=== PATIENT | female | born 1945 | race Caucasian/White ===

== ENCOUNTER 2018-06-23 10:08 | Inpatient (IN) | payer MEDICARE, BC ==
[~2018-06-23] VITALS: Ht 167.6 cm; Wt 90.3 kg
[~2018-06-23 10:08] MED LIST: ASPIRIN81 M2; BENICAR40 MG; CLARITIN10 MG; FOLIC ACID1 MG; HYDROCODON-ACE1 EACH PO; LOTREL 10-20 M1 EACH PO; SIMVASTATIN20 MG; SULFASALAZINE500 M4; ZOFRAN ODT4 MG PO
[2018-06-23 10:15] VITALS: BP 155/75
[2018-06-23] MEDS ORDERED: CO Q-10100 MG PO (10:37)
[2018-06-23] MEDS ORDERED: VISION FORMULA1 EAC1 PO (10:38)
[2018-06-23] MEDS ORDERED: STOOL SOFTENER100 MG PO (10:42)
[2018-06-23] MEDS ORDERED: [UNRECOGNIZED DRUG - REMARK] (10:43)
[2018-06-23 10:52] LABS: ABSOLUTE BASOPHILS 0.1 thou/uL (0.0-0.2); ABSOLUTE EOSINOPHILS 0.3 thou/uL (0.0-0.7); ABSOLUTE LYMPHOCYTES 1.1 thou/uL (0.8-5.3); ABSOLUTE MONOCYTES 1.2 thou/uL (0.0-1.2); BASOPHILS 0.8 %; EOSINOPHILS 3.6 %; HEMATOCRIT 35.2 % (37.0-47.0); HEMOGLOBIN 11.8 gm/dL (12.0-15.0); LYMPHOCYTES 11.1 %; MCHC 33.5 g/dL (28.0-37.0); MCV 83.7 fL (80.0-100.0); MONOCYTES 12.4 %; MPV 9.6 fl. (7.2-11.1); NUCLEATED RBCS 0 /100WBC; PLATELET COUNT* 278 thou/uL (150-400); POLYS 72.1 %; RBC 4.21 mil/uL (4.20-5.00); RDW-CV 13.5 % (10.5-14.5); WBC 9.7 thou/uL (4.0-11.0)
[2018-06-23 11:07] LABS: CALCIUM 9.2 mg/dL (8.5-10.1); CREATININE 0.8 mg/dL (0.6-1.3); POTASSIUM 4.4 mmol/L (3.5-5.1)
[2018-06-23 11:09] LABS: NT-PRO BRAIN NAT PEPTIDE 157 pg/mL (<300); TROPONIN-I LEVEL <0.06 ng/mL (<0.06)
[2018-06-23 11:11] LABS: TOTAL BILIRUBIN 0.3 mg/dL (<0.1-1.0); TOTAL PROTEIN 6.9 g/dL (6.4-8.2)
[2018-06-23 11:59] LABS: URINE BILIRUBIN NEGATIVE (Negative); URINE BLOOD NEGATIVE (Negative); URINE CLARITY CLEAR; URINE COLOR DARK YELLOW; URINE GLUCOSE-RANDOM NEGATIVE (Negative); URINE KETONES TRACE (Negative); URINE LEUKOCYTES-REFLEX TRACE (Negative); URINE NITRITE-REFLEX NEGATIVE (Negative); URINE PROTEIN TRACE (Negative); URINE SPECIFIC GRAVITY 1.015 (1.005-1.030); URINE UROBILINOGEN 0.2 E.U./dl (0.2-1.0)
[2018-06-23 12:25] LABS: SQUAMOUS 4-10 Moderate /LPF (0-3); URINE RBC None Seen /HPF (0-2); URINE WBC-REFLEX 0-5 Rare /HPF (0-5)
[2018-06-23 12:26] LABS: BACTERIA-REFLEX 1-9 Few /HPF (None Seen); CASTS None Seen /LPF (None Seen); CRYSTALS None Seen /LPF (None Seen)
[2018-06-23 15:41] VITALS: BP 151/70
[2018-06-23 16:07] VITALS: BP 148/71
--- NOTE | 2018-06-23 16:18 | NUR ---
DURING ASSESMENT ROUNDED AND STATED PATIENT WOULD NEED TO BE IN NEGATIVE PRESSURE ROOM FOR POSSIBLE MYCOBACTERIUM PNEUMONIA. LAST SCOURER NOTIFIED.
[2018-06-23 16:51] VITALS: BP 139/66
[2018-06-23] MEDS ORDERED: XARELTO15 MG PO (18:26)
[2018-06-23] MEDS ORDERED: NORCO 5-325 TA1 EACH PO (18:28)
[2018-06-23 20:00] VITALS: BP 142/79
[2018-06-24] VITALS (7 sets, daily range): BP systolic 116–139; BP diastolic 44–68
--- NOTE | 2018-06-24 06:13 | NUR ---
PATIENT PROGRESSING TOWARDS GOALS. NO ACUTE HEMODYNAMIC CHANGES OVER NIGHT. TB SKIN TEST ADM LAST NIGHT. WILL CONTINUE TO MONITOR CLOSELY. PT COMPLAINED OF LEFT KNEE PAIN, REPOSITIONED AND PAIN MEDICATION GIVEN SEEMED TO HELP. PT ABLE TO VOID PER COMMOD WITH NO COMPLICATIONS. SHE REFUSED INSLUIN LAST NIGHT STATED "I AM NOT DIABETIC I JUST ATE SOME JELLO MAYBE THAT'S WHY IT IS HIGH, WE CAN WAIT AND SEE WHAT IT IS IN THE MORNING". EDUCATION GIVEN NEEDS REINFORCEMENT. PT TOLERATED CPAP WELL 02 >92. PT HAS NO CURRENT CONCERNS AT THIS TIME WILL CONTINUE TO MONITOR. PT REMAINS IN NEGITIVE PRESSURE ROOM. CALL LIGHT WITHIN REACH.
[2018-06-24 09:00] LABS: HEMATOCRIT 38.1 % (37.0-47.0); HEMOGLOBIN 12.6 gm/dL (12.0-15.0); MCH 27.5 pg (26.0-34.0); MCV 83.6 fL (80.0-100.0); MPV 10.1 fl. (7.2-11.1); RBC 4.56 mil/uL (4.20-5.00); RDW-CV 13.6 % (10.5-14.5); WBC 9.7 thou/uL (4.0-11.0)
[2018-06-24 09:08] LABS: HIV-1/HIV-2 ANTIBODY Non Reactive (Non Reactive)
[2018-06-24 09:25] LABS: ALBUMIN 3.3 g/dL (3.4-5.0); CALCIUM 9.8 mg/dL (8.5-10.1); CREATININE 0.9 mg/dL (0.6-1.3); MAGNESIUM 2.1 mg/dL (1.8-2.4); POTASSIUM 4.1 mmol/L (3.5-5.1); TOTAL BILIRUBIN 0.4 mg/dL (<0.1-1.0); TOTAL PROTEIN 8.2 g/dL (6.4-8.2)
--- NOTE | 2018-06-24 11:00 | NUR ---
PT ADMITTED YESTERDAY WITH ATYPICAL PNEUMONIA. SPOKE WITH PT AND . PT HAD TOTAL KNEE REPLACEMENT BY DR. LOMELI AT [facility] IN APR[place], SHE SAID SHE WAS PROGRESSING WELL UNTIL RECENTLY WHEN SHE DEVELOPED SEVERE PAIN IN HER LEG. SHE HAD GOTTEN TO THE POINT WHERE SHE DIDN'T NEED HER CANE OR WALKER ANY LONGER AND WAS GOING TO OUTPATIENT THERAPY AT [facility] IN [facility]. SHE RECENTLY HAS STARTED TO NEED HER WALKER TO GET TO THE BATHROOM DURING THE NIGHT, DUE TO THE PAIN. PT SAW A 'VEIN DOCTOR I DIDN'T EVEN KNOW SUCH A THING EXISTED' RECENTLY WHO DIAGNOSED HER WITH SUPERFICIAL VEIN THROMBOSIS, SHE WAS STARTED ON XARLETO ON 06/15 FOR THAT. PT NORMALLY WAS ACTIVE AND INDEP, HER IS AVAILABLE TO ASSIST IF NEEDED. PT ANXIOUS TO START P.T. HERE IN THE HOSPITAL, 'I DON'T WANT TO LOSE WHAT I HAVE WORKED SO HARD TO GET.' EXPLAINED ROLE OF CASE MGT, WILL CONTINUE TO FOLLOW. PT PLANS TO RETURN HOME WWITH HER AND CONTINUE OUTPT P.T.
--- NOTE | 2018-06-24 12:33 | CON ---
[address] [address] CONSULTATION Name: AMOL CINTRON Room: [address] IN .R.#: [id number] Admission: 06/23/18 Attend Phys: Joyce Vela MD Discharge: Date of : 43 Report #: [id number] THIS REPORT FOR: //name// CC: Joyce Ruth DATE OF SERVICE: 06/23/2018 ATTENDING PHYSICIAN: Dr. Vela. REASON FOR EVALUATION: Pneumonitis, possible atypical. HISTORY OF PRESENT ILLNESS: Chart reviewed, patient examined. This is a 72-year-old woman with history of colon cancer although in the distant past, hypertension, obstructive sleep apnea, who actually has not been feeling well for the last 5-6 days, described a brief period of fevers that has resolved, has a nonproductive cough, dyspnea, progressive weakness. She notes total knee replacement on the right in early part of April that has been complicated by, she has got a superficial vein thrombosis. She notes the knee had increasing pain that prompted the evaluation. Denies significant pulmonary-related complaints. She had some minor weight loss during that last 7 weeks revolving around the total knee arthroplasty. On evaluation was fairly unremarkable chest x-ray, however, CT to exclude PE, showed scattered tiny peripheral pulmonary nodules. There is question of possible atypical pneumonitis including Mycobacterium and fungal. Urinalysis was otherwise unremarkable. White count was 9.7. She was mildly anemic at 11.8, lower limits of normal being 12.0. She has not had recorded temperature elevation. She was empirically started on ceftriaxone and azithromycin. ALLERGIES: SULFASALAZINE. MEDICATIONS: Include ipratropium, albuterol inhaler, ceftriaxone and azithromycin. PAST MEDICAL HISTORY: As described above, hyperlipidemia, hypertension. SOCIAL HISTORY: Nonsmoker, no ethanol. FAMILY HISTORY: Noncontributory. REVIEW OF SYSTEMS: As above. PHYSICAL EXAMINATION: GENERAL: She is in [id number] distress. She does have occasional cough, it is nonproductive. She appears reasonably well nourished. VITAL SIGNS: Temperature 98.8, pulse 75, respirations 18, [place] [address] CONSULTATION Name: AMOL CINTRON Sulma Room: [address]#: [id number] Admission: 06/23/18 Attend Phys: Joyce Vela MD Discharge: Date of : 43 Report #: [id number] 139/66. SKIN: Warm, dry, no rashes. HEENT: Otherwise unremarkable. NECK: Supple. LUNGS: Generally clear to auscultation. HEART: Regular. No appreciable murmur. ABDOMEN: Soft, nontender. EXTREMITIES: No cyanosis. GENITOURINARY: Deferred. RECTAL: Deferred. LABORATORY DATA: As described above. Lactic acid is 0.6. CTA chest PE protocol notes small peripherally-enhancing nodules in a tree-in-bud pattern in the inferolateral aspect of the right upper lobe, appearance of an atypical infection. Urinalysis: 0-5 white cells. Electrolytes: Sodium 137, potassium 4.4, chloride 101, bicarbonate is 27, anion gap of 9, BUN and creatinine 15 and 0.8, glucose of 176. LFTs unremarkable. Albumin of 3.0, total protein 6.9, estimated GFR of 70. D-dimer of 2.23. CBC: White count of 9.7, H and H 11.8 and 35.2, platelets of 278. ASSESSMENT: Atypical pneumonitis. I think certainly the timeline suggest more of an acute illness as opposed to some sort of underlying chronic pneumonitis. We will continue with azithromycin. I am not particularly hopeful that she would be able to cough up any sputum. She has been placed in respiratory isolation. We will check urinary antigens, etc. We may have to try to induce a sputum. See how she does clinically over the next 24-48 hours. <ELECTRONICALLY SIGNED> By: Harsh Carl MD 06/24/18 1233 1741 [id number] Carl MD /nt
--- NOTE | 2018-06-24 13:56 | NUR ---
PT TELE STATUS. ON ISOLATION PRECAUTIONS FOR TB. MEDS GIVEN. ASSESSMENT CHARTED. AFEBRILE. VITALS STABLE. REPORT GIVEN TO GABBI REDDY. ALL QUESTIONS ANSWERED. PT TRANSFERRED TO RM. 200. TRANSFERRED WITH BELONGINGS AND ISOLATION CART AROUND 1300.
--- NOTE | 2018-06-24 16:21 | EKG ---
[place] [address] ELECTROCARDIOGRAM REPORT Name: AMOL CINTRON Room: [address] IN .R.#: [id number] Admission: 06/23/18 Attend Phys: Joyce Vela MD Discharge: Date of : 43 Report #: [id number] THIS REPORT FOR: //name// [facility] ED Test Date: 2018-06-23 Test Time: 10:22:27 Pat Name: AMOL CINTRON Department: Room: [facility] Gender: F Ward Maid: : 1945 Requested By: Joan Mcdonald Order Number: [id number] MD: Hugo Willis Measurements Intervals [place] Rate: 93 P: 19 [place]: 170 QRS: 61 QRSD: 86 T: 46 QT: 322 QTc: 401 Interpretive Statements Sinus rhythm Compared to ECG 03/27/2013 08:33:15 No significant changes Electronically Signed On 06-24-2018 16:21:04 CDT by Hugo Willis [email or web address] <ELECTRONICALLY SIGNED> By: Hugo Willis MD, [facility] 06/24/18 1621 1022 1022 Hugo Willis MD, [facility] /EPI
--- NOTE | 2018-06-24 17:55 | NUR ---
PT TRANSFERED FROM ICU TO ROOM 200 AT APPROX 1310. PT A/O X4, ASSESMENT DONE, THIS RN AGREES WITH THE AM ASSESMENT. PT ON 2L 02, LUNGS DIMINISHED, TEMP 99.8, ALL OTHER VSS. TYLENOL GIVEN FOR TEMP.DROPLET PRECAUTIONS MAINTAINED. PT SR ON THE MONITOR. USES WALKER TO AMBULATE, CALLS APPROPRIALTY FOR ASSISTANCE. WILL CONTINUE WITH PLAN OF CARE.
[2018-06-25 00:16] VITALS: BP 127/57
--- NOTE | 2018-06-25 01:44 | NUR ---
ASSUMED CARE OF PT AT 1900. PT IS ALERT AND ORIENTED. VSS. PERRLA. NO COMPLAINTS OF PAIN. UP WITH 1 ASSIST. PT IS IN SINUS RYTHM ON THE TELEMETRY. PT IS IN AIRBORN PRECAUTIONS FOR POSSIBLE TUBERCULOSIS. PT IS SLEEPING QUIETLY IN BED. RESPIRATIONS ARE EVEN AND NONLABORED. WILL CONTINUE TO MONITOR PT.
[2018-06-25 02:11] LABS: GLYCOHEMOGLOBIN (HGB A1C) 5.5 % (4.8-5.6)
[2018-06-25 05:00] VITALS: BP 130/75
[2018-06-25 08:30] VITALS: BP 137/72
--- NOTE | 2018-06-25 09:21 | CON ---
[address] [address] CONSULTATION Name: AMOL CINTRON Room: [address] IN .R.#: [id number] Admission: 06/23/18 Attend Phys: Joyce Vela MD Discharge: Date of : 43 Report #: [id number] THIS REPORT FOR: //name// CC: Joyce Ruth DATE OF SERVICE: 06/24/2018 REFERRING PHYSICIAN: Joyce Vela MD CHIEF COMPLAINT: Cough. HISTORY OF PRESENT ILLNESS: The patient is a 72-year-old female who is a lifelong nonsmoker. It is difficult to get history from the patient in respect to the accuracy of her underlying condition and/or problems. She states that she has had a cough for several weeks, although it may have been longer. She is really vague about the extent. She has not been productive. She has denied fever, chills, phlegm production. She has not had any chest pain, nausea, vomiting or abdominal pain. The patient is unclear as to whether she actually has shortness of breath or not. She is a lifelong nonsmoker. She has undergone evaluation for COPD and was told that she does not meet criteria for that condition. She apparently had been evaluated by a pulmonary physician in [place], [place]. PAST MEDICAL HISTORY: Significant for right knee surgery on 04/19/2018, history of colon carcinoma 23 years ago with no evidence of recurrence, history of hypertension, hyperlipidemia, superficial thrombophlebitis, sleep apnea. FAMILY HISTORY: No specific family ailments according to the patient. ALLERGIES: SULFASALAZINE. CURRENT MEDICATIONS: Rocephin, Zithromax, Lipitor, lisinopril, Xarelto, folic acid, loratadine. PHYSICAL EXAMINATION: VITAL SIGNS: Blood pressure 127/58, respiratory rate 20 and nonlabored, pulse rate 72 and regular, temperature 99 degrees. GENERAL APPEARANCE: Awake, alert, oriented. HEENT: Head atraumatic. Eyes: Pupils are round, equal and reactive. Oral cavity moist. NECK: No adenopathy. CHEST: Clear throughout all lung sorto. No audible wheezes, rales or rhonchi. CARDIOVASCULAR: Regular rhythm. ABDOMEN: [place] [address] CONSULTATION Name: AMOL CINTRON Room: [address] IN [facility]#: [id number] Admission: 06/23/18 Attend Phys: Joyce Vela MD Discharge: Date of : 43 Report #: [id number] EXTREMITIES: Negative for edema. No evidence of clubbing. NEUROLOGIC: No focal lateralizing signs. Moves all 4 extremities spontaneously and on command. LABORATORY DATA: Sodium 138, potassium 4.1, chloride 101, CO2 of 31, BUN of 12, creatinine 0.9. EGFR is 61. Hemoglobin and hematocrit of 12.6 and 38, white count 9700. Immunology studies are pending. T-SPOT TB test pending. Mycoplasma for immunoglobulins is pending. Her HIV test is nonreactive. MEDICAL IMAGING STUDIES: Chest x-ray did not reveal any acute findings. A CTA of the chest did not reveal any evidence of vascular filling defects. The report reveals scattered tiny peripheral pulmonary nodules bilaterally, more prominently in the lateral inferior aspect of the right upper lobe with tree-in-bud pattern, no focal infiltrates, effusions or mass effect. No evidence of adenopathy. ASSESSMENT: 1. Chronic cough. 2. Dyspnea. 3. Abnormal CT of the chest as described by the spanish interpreter. RECOMMENDATION: Await the results of the blood work, which will include the TB study and immunoglobulin studies. Continue isolation for now until this could be more effectively settled. She is nonproductive as far as cough is concerned. Information reflects also that the patient had been exposed to a non-TB organism as a result of interaction with a foreign medical student approximately 3 years or so ago. At that time, according to the patient, evaluation and workup were negative for TB in herself as well as in her . <ELECTRONICALLY SIGNED> By: Ernie Brito MD 06/25/18 0921 1245 [id number] Brito MD /nt
[2018-06-25 10:11] LABS: HEMATOCRIT 33.4 % (37.0-47.0); MCH 27.2 pg (26.0-34.0); MCHC 32.8 g/dL (28.0-37.0); MCV 82.9 fL (80.0-100.0); MPV 9.7 fl. (7.2-11.1); RBC 4.03 mil/uL (4.20-5.00); RDW-CV 13.7 % (10.5-14.5); WBC 8.7 thou/uL (4.0-11.0)
[2018-06-25 10:30] LABS: ALBUMIN 2.8 g/dL (3.4-5.0); CALCIUM 9.1 mg/dL (8.5-10.1); CREATININE 0.9 mg/dL (0.6-1.3); MAGNESIUM 1.9 mg/dL (1.8-2.4); POTASSIUM 3.6 mmol/L (3.5-5.1); TOTAL BILIRUBIN 0.3 mg/dL (<0.1-1.0); TOTAL PROTEIN 7.2 g/dL (6.4-8.2)
--- NOTE | 2018-06-25 18:14 | NUR ---
ASSUMED PT CARE AT 0700 PT IS ALERT AND ORIENTED X 4 PT DENIES PAIN OR SOA ON RA, PT IS UP WITH SBA PT USES WALKER PT IS STEADY ON FEET PT IS NOT A FALL RISK NURSE SANDBLASTING SUPERVISOR HAS REQUESTED THAT STAFF ASSISTS PT WHEN AMBULATING PT FAMILY HAS BEEN COMPLIANT WITH WERAING APPROPRIATE PPE PT IS IN DROPLET ISOLATION, OBTAINED NOSE SWAB FOR HINI AWAITING RESULTS, PT IS SR ON THE MONTIOR, PT REQUESTS TYLENOL PT IS DIAPHORETIC TEMP IS ELEVATED GAVE TYLENOL, WILL CONTINUE TO MONITOR
[2018-06-25 20:00] VITALS: BP 133/61
[2018-06-25 22:14] LABS: MYCOPLASMA PNEUMONIA IgG 202 U/mL (0-99); MYCOPLASMA PNEUMONIA IgM <770 U/mL (0-769)
[2018-06-26] VITALS: BP 166/81
[2018-06-26 04:00] VITALS: BP 164/81
[2018-06-26 04:54] LABS: ABSOLUTE BASOPHILS 0.1 thou/uL (0.0-0.2); ABSOLUTE EOSINOPHILS 0.5 thou/uL (0.0-0.7); ABSOLUTE MONOCYTES 1.2 thou/uL (0.0-1.2); BASOPHILS 1.1 %; EOSINOPHILS 5.5 %; HEMATOCRIT 32.6 % (37.0-47.0); HEMOGLOBIN 10.9 gm/dL (12.0-15.0); LYMPHOCYTES 20.3 %; MCH 27.7 pg (26.0-34.0); MCHC 33.4 g/dL (28.0-37.0); MONOCYTES 12.5 %; MPV 10.4 fl. (7.2-11.1); NUCLEATED RBCS 0 /100WBC; PLATELET COUNT* 274 thou/uL (150-400); POLYS 60.6 %; RBC 3.93 mil/uL (4.20-5.00); RDW-CV 13.5 % (10.5-14.5); WBC 9.9 thou/uL (4.0-11.0)
--- NOTE | 2018-06-26 06:55 | NUR ---
PATIENT SLEPT PART OF THE NIGHT. IV REMAINS SALINE LOCKED. PATIENT WAS GIVEN PAIN MEDICINE TWICE THIS SHIFT. PATIENT REMAINS ON TB PRECAUTIONS. WILL CONTINUE TO MONITOR.
[2018-06-26 08:00] VITALS: BP 124/67
--- NOTE | 2018-06-26 09:48 | NUR ---
ASSUMED PT CARE AT 0730, FULL ASSESMENT DONE CHARTED. PT A/O X4, SITTING UP, LUNGS CLEAR, NON PRODUCTIVE COUGH. PT DENIES BEING ABLE TO COUGH UP SPUTUME SAMPLE. PT DENIES PAIN, STATES SHE WANTS TO GO HOME, SPOKE TO DR VALDOVINOS THIS AM. DROPLET PRECAUTIONS MAINTAINED, PT USES CALL LIGHT TO ASK FOR ASSIST APPROPRIALTY. VSS, M/S STATUS. WILL CONITNUE WITH PLAN OF CARE.
[2018-06-26 16:00] VITALS: BP 125/99
[2018-06-27] VITALS: BP 116/54
--- NOTE | 2018-06-27 06:08 | NUR ---
PATIENT SLEPT MOST OF THE NIGHT. PATIENT WAS GIVEN PAIN MEDICINE TWICE THIS SHIFT. TB BLOOD TEST CAME BACK NEGATIVE OVERNIGHT. ISOLATION WAS DISCONTINUED. PATIENT IS POSSIBLY GOING HOME TODAY. WILL CONTINUE TO MONITOR.
[2018-06-27 08:00] VITALS: BP 138/65
[2018-06-27] MEDS ORDERED: AZITHROMYCIN250 MG PO (12:33)
[2018-06-27 12:40] VITALS: BP 138/65
--- NOTE | 2018-06-27 13:46 | NUR ---
ORDER RECEIVED TO DISHCARGE PATIENT HOME TO SELF CARE WITH SPOUSE. MED REC, MEICATION EDUCAITON, STROKE EDUCATION, AND NEED FOR FOLLOW UP APPOINTMENTS WITH PRIMARY CARE AND DR ROWE IN 2 WEEKS COVERED AND STATED UNDERSTOOD BY PATIENT. PAITNET GIVEN AMPLE TIME FOR QUESTIONS RELATED TO HOME CARE, FOLLOW UP APPOINTMENTS, AND NEW ANTIBIOTIC PRESCRIPTIONS. ABIODUN WAS TRANSPORTED VIA WHEELCHAIR BY TECH TO AWAITING CAR WITH SPOUSE PRESENT. HOURLKY ROUNDING COMPLETED FOR PATINET SAFETY AND PATIENT HAD PROGRESSED TOWARDS GOALS. DC TIME OF 13:20.
[2018-06-29 02:11] LABS: ADENOVIRUS Negative (Negative); INFLUENZA A Negative (Negative); INFLUENZA B Negative (Negative); METAPNEUMOVIRUS Negative (Negative); PARAINFLUENZA 1 Negative (Negative); PARAINFLUENZA 2 Negative (Negative); PARAINFLUENZA 3 Negative (Negative); RHINOVIRUS Negative (Negative); RSV A Negative (Negative); RSV B Negative (Negative)
== END 2018-06-27 13:25 | disposition home or self-care (01) | DRG 177 ==
LOC: M.ERS 10:08 → M.TBA-ER 14:34 → M.2W 14:34 → M.ICU 14:34 → M.ORTHSURG 15:26 → M.ICU 16:40 → M.2W 06-24 13:06
PROVIDERS: Internal Medicine Pulmonary Disease; Nurse Practitioner Family; Personal Emergency Response Attendant; Specialist; ADMIT Internal Medicine
PROC: 5A09357 Assistance with Respiratory Ventilation, Less than 24 Consecutive Hours, Continuous Positive Airway Pressure (ICD-10-PCS; 2018-06-24)
PROC: 5A09357 Assistance with Respiratory Ventilation, Less than 24 Consecutive Hours, Continuous Positive Airway Pressure (ICD-10-PCS; principal; 2018-06-25)
DX: J15.6 Pneumonia due to other Gram-negative bacteria (principal); J96.00 Acute respiratory failure, unspecified whether with hypoxia or hypercapnia; J98.11 Atelectasis; I80.3 Phlebitis and thrombophlebitis of lower extremities, unspecified; G47.33 Obstructive sleep apnea (adult) (pediatric); J15.8 Pneumonia due to other specified bacteria; J15.9 Unspecified bacterial pneumonia; I10 Essential (primary) hypertension; E78.5 Hyperlipidemia, unspecified; Z85.038 Personal history of other malignant neoplasm of large intestine; Z90.49 Acquired absence of other specified parts of digestive tract; Z88.2 Allergy status to sulfonamides; Z79.899 Other long term (current) drug therapy

== ENCOUNTER → 2019-04-26 | Outpatient (CLI) | payer MEDICARE, BC ==
[~2019-04-26] MED LIST changes: +AZITHROMYCIN250 MG PO; +CO Q-10100 MG PO; +NORCO 5-325 TA1 EACH PO; +STOOL SOFTENER100 MG PO; +VISION FORMULA1 EAC1 PO; +XARELTO15 MG PO; +[UNRECOGNIZED DRUG - REMARK]
== END ==
LOC: M.RAD 13:29
DX: Z12.31 Encounter for screening mammogram for malignant neoplasm of breast (principal); Z13.820 Encounter for screening for osteoporosis; M85.89 Other specified disorders of bone density and structure, multiple sites; I10 Essential (primary) hypertension; E28.39 Other primary ovarian failure

== ENCOUNTER → 2020-06-27 | Outpatient (CLI) | payer MEDICARE, BC | LOC: M.ULTRA 09:58 | PROVIDERS: ATTEND Internal Medicine Cardiovascular Disease | DX: I65.23 Occlusion and stenosis of bilateral carotid arteries (principal) ==

== ENCOUNTER 2020-09-04 18:00 | Inpatient (IN) | payer MEDICARE, BC ==
[~2020-09-04] VITALS: Ht 167.6 cm; Wt 95.6 kg
[2020-09-04 18:16] VITALS: BP 180/128
[2020-09-04] MEDS ORDERED: SULFASALAZINE500 M4 PO (18:26)
[2020-09-04] MEDS ORDERED: COZAAR 25 MG TA25 M1 PO (18:27)
[2020-09-04 18:52] LABS: HEMATOCRIT 40.6 % (37.0-47.0); HEMOGLOBIN 13.6 gm/dL (12.0-15.0); MCH 30.4 pg (26.0-34.0); MCHC 33.5 g/dL (28.0-37.0); MCV 90.7 fL (80.0-100.0); MPV 10.2 fl. (7.2-11.1); NUCLEATED RBCS 0 /100WBC; PLATELET COUNT* 271 thou/uL (150-400); RBC 4.48 mil/uL (4.20-5.00); RDW-CV 12.8 % (10.5-14.5)
[2020-09-04 18:56] LABS: CALCIUM 9.3 mg/dL (8.5-10.1)
[2020-09-04 18:59] LABS: APTT 22.1 Seconds (25.0-31.3); PROTIME 10.3 Seconds (9.20-11.50)
[2020-09-04 19:01] LABS: ALBUMIN 3.3 g/dL (3.4-5.0); TOTAL PROTEIN 7.4 g/dL (6.4-8.2)
[2020-09-04 19:21] LABS: ABSOLUTE EOSINOPHILS 0.2 thou/uL (0.0-0.7); ABSOLUTE LYMPHOCYTES 0.9 thou/uL (0.8-5.3); ABSOLUTE MONOCYTES 0.8 thou/uL (0.0-1.2); ABSOLUTE NEUTROPHILS 13.2 thou/uL (1.6-8.1); PLATELET ESTIMATE ADEQUATE
[2020-09-05] VITALS (9 sets, daily range): BP systolic 105–157; BP diastolic 52–74
[2020-09-05 00:20] LABS: URINE BILIRUBIN 1+ (Negative); URINE BLOOD NEGATIVE (Negative); URINE CLARITY CLEAR; URINE COLOR YELLOW; URINE GLUCOSE-RANDOM NEGATIVE (Negative); URINE KETONES NEGATIVE (Negative); URINE LEUKOCYTES-REFLEX NEGATIVE (Negative); URINE NITRITE-REFLEX NEGATIVE (Negative); URINE PROTEIN NEGATIVE (Negative); URINE UROBILINOGEN 0.2 E.U./dl (0.2-1.0)
[2020-09-05 00:22] LABS: ICTOTEST (BILI CONFIRMATORY) Positive (Negative)
[2020-09-05 04:10] LABS: HEMOGLOBIN 12.9 gm/dL (12.0-15.0); MCH 30.2 pg (26.0-34.0); MCHC 33.1 g/dL (28.0-37.0); MCV 91.2 fL (80.0-100.0); MPV 10.2 fl. (7.2-11.1); RBC 4.28 mil/uL (4.20-5.00); RDW-CV 13.2 % (10.5-14.5); WBC 14.2 thou/uL (4.0-11.0)
[2020-09-05 04:29] LABS: ALBUMIN 2.9 g/dL (3.4-5.0); CALCIUM 8.7 mg/dL (8.5-10.1); POTASSIUM 3.7 mmol/L (3.5-5.1); TOTAL BILIRUBIN 1.2 mg/dL (<0.1-1.0); TOTAL PROTEIN 6.5 g/dL (6.4-8.2)
--- NOTE | 2020-09-05 09:41 | EKG ---
[place] [address] ELECTROCARDIOGRAM REPORT Name: AMOL CINTRON Room: [address] ADM IN .R.#: [id number] Admission: 09/04/20 Attend Phys: Dimas Draper, Discharge: Date of : 43 Date of Service: 09/04/201829 Report #: [id number] THIS REPORT FOR: //name// [facility] ED Test Date: 2020-09-04 Test Time: 18:30:49 Pat Name: AMOL CINTRON Department: Room: [place] Gender: F Planning Supervisor: DSBarry : 1945 Requested By: Earnestine Aguilar Order Number: [id number] MD: Aime Bartlett Measurements Intervals [place] Rate: 82 P: -44 MT: 183 QRS: 57 QRSD: 89 T: 53 QT: 380 QTc: 444 Interpretive Statements Sinus rhythm RsR' in V1 Compared to ECG 06/23/2018 10:22:27 No significant changes Electronically Signed On 09-05-2020 9:40:56 WINDOW MACHINE OPERATOR by Aime Bartlett [email or web address] <ELECTRONICALLY SIGNED> By: Aime Bartlett MD, FACC 09/05/20 0940 1830 1830 Aime Bartlett MD, [facility] /EPI
--- NOTE | 2020-09-05 14:26 | CON ---
[address] [address] CONSULTATION Name: AMOL CINTRON Room: [address] IN M.R.#: [id number] Admission: 09/04/20 Attend Phys: Dimas Draper MD Discharge: Date of : 43 Report #: [id number] THIS REPORT FOR: //name// cc: Omar Sin MD, Arthur MD ~ DATE OF SERVICE: 09/05/2020 PRIMARY CARE PHYSICIAN: Dr. Omar Sin. REASON FOR CONSULTATION: Abdominal pain and elevated LFTs, pancreatitis. HISTORY OF PRESENT ILLNESS: This is a 74-year-old female who presented to the Emergency Room with recurrent abdominal pain, nausea and vomiting. The patient states about 3 weeks ago, she had some abdominal pain that lasted overnight that was gone in the next morning, she did not anything about it. It came back last week again overnight. The next morning, she called her GI doctor, Dr. Stock. She was to go in and see the nurse practitioner this coming and then she is scheduled for a colonoscopy in september given her history of colon cancer, it is her five year recall, but she states yesterday after eating breakfast, she had an abrupt onset of pain shortly after that continued throughout the day. She started vomiting around midday and the pain progressively got worse. She said this pain was similar to when she had colitis 30+ years ago prior to her colon cancer and she has never had any other problem like this before. The patient has not noticed any bright red blood or coffee-ground emesis and has not noted any bright red blood or black tarry stools either. She states her bowels typically move about every other day. She does take a stool softener for that since she started taking a calcium supplement. ALLERGIES: SULFASALAZINE IN HIGH DOSES. MEDICATIONS: From home include folic acid; vitamin A, C, E, zinc and copper, it is a Vision formula; stool softener; amlodipine; simvastatin; CoQ10; allergy pill; sulfasalazine 500 mg just b.i.d., and losartan. PAST MEDICAL HISTORY: Colon cancer, status post resection with 1 year of chemo 30 years ago and follows with Dr. Stock. Plans for colonoscopy for surveillance mid September, questionable colitis prior to her colon cancer. PAST SURGICAL HISTORY: Colectomy. FAMILY HISTORY: Maternal aunt, colon cancer. SOCIAL HISTORY: Denies any alcohol, tobacco or illegal [place] [address] CONSULTATION Name: AMOL CINTRON MELISSA Room: [address]#: [id number] Admission: 09/04/20 Attend Phys: Dimas Draper MD Discharge: Date of : 43 Report #: [id number] and her is at her bedside. PHYSICAL EXAMINATION: VITAL SIGNS: Temperature 37.9, pulse 86, respirations 16, blood pressure 135/55. HEART: Regular rate and rhythm. LUNGS: Diminished, but clear. ABDOMEN: Soft, positive bowel sounds in all 4 quadrants with tenderness noted in the upper quadrants. LABORATORY DATA: Hemoglobin is 12.9, white count is 14.2, platelets 245. GFR is 54. On admission, her total bilirubin was 4.8, alkaline phosphatase 352, ALT 524 and AST was 356. This morning, her total bilirubin has dropped to 1.2, alkaline phosphatase is 286, ALT is 413 and AST is 218. Lipase on admission was over 11,041. PT 10.3, INR is 1. CT scan showed distended gallbladder and inflammation surrounding the pancreas with interstitial edematous pancreatitis. No biliary ductal dilatation noted. DIAGNOSTIC DATA: Ultrasound shows mild hepatomegaly with diffuse hepatosteatosis, finding consistent with an acute cholecystitis. IMPRESSION: 1. Elevated liver function tests. 2. Pancreatitis. 3. Acute cholecystitis. 4. Leukocytosis. 5. History of colon cancer 30+ years ago. 6. Family history of colon cancer. PLAN: 1. Increase her IV fluids to 175. 2. Ice chips. 3. Acute hepatitis panel pending. GGTP is pending. 4. MRCP today. 5. The patient is already scheduled with an outpatient colonoscopy with Dr. Stock on 10/02 for her surveillance colon. 6. Further recommendations to be made once the MRCP has been returned. Thank you for allowing us to participate in this patient's care. Please do not hesitate to call with any questions in regard to this consult. <ELECTRONICALLY SIGNED> By: Alexx Garsia DO 09/05/20 1426 1127 [id number] Garsia DO /nt
[2020-09-06 04:00] VITALS: BP 150/71
[2020-09-06 04:31] LABS: ABSOLUTE EOSINOPHILS 0.2 thou/uL (0.0-0.7); ABSOLUTE LYMPHOCYTES 1.3 thou/uL (0.8-5.3); ABSOLUTE MONOCYTES 1.3 thou/uL (0.0-1.2); ABSOLUTE NEUTROPHILS 14.2 thou/uL (1.6-8.1); BASOPHILS 0.2 %; HEMOGLOBIN 12.1 gm/dL (12.0-15.0); LYMPHOCYTES 7.5 %; MCH 30.1 pg (26.0-34.0); MCHC 32.8 g/dL (28.0-37.0); MCV 91.7 fL (80.0-100.0); MONOCYTES 7.5 %; MPV 10.6 fl. (7.2-11.1); NUCLEATED RBCS 0 /100WBC; PLATELET COUNT* 219 thou/uL (150-400); POLYS 83.8 %; RBC 4.04 mil/uL (4.20-5.00); RDW-CV 13.1 % (10.5-14.5); WBC 16.9 thou/uL (4.0-11.0)
[2020-09-06 04:56] LABS: ALBUMIN 2.6 g/dL (3.4-5.0); CALCIUM 8.2 mg/dL (8.5-10.1); CREATININE 0.8 mg/dL (0.6-1.3); POTASSIUM 3.4 mmol/L (3.5-5.1); TOTAL PROTEIN 6.4 g/dL (6.4-8.2)
[2020-09-06 07:08] LABS: HEPATITIS B SURFACE AG Negative (Negative)
[2020-09-06 08:47] VITALS: BP 154/76
[2020-09-06 12:00] VITALS: BP 134/71
[2020-09-06 16:40] VITALS: BP 147/58
[2020-09-06 20:28] VITALS: BP 155/67
[2020-09-07] VITALS: BP 140/70
[2020-09-07 04:00] VITALS: BP 152/60
[2020-09-07 04:11] LABS: HEMOGLOBIN 11.4 gm/dL (12.0-15.0); MCH 29.6 pg (26.0-34.0); MCHC 32.6 g/dL (28.0-37.0); MCV 90.8 fL (80.0-100.0); MPV 11.2 fl. (7.2-11.1); RBC 3.86 mil/uL (4.20-5.00); RDW-CV 12.9 % (10.5-14.5); WBC 20.1 thou/uL (4.0-11.0)
[2020-09-07 04:44] LABS: ALBUMIN 2.4 g/dL (3.4-5.0); CALCIUM 7.9 mg/dL (8.5-10.1); CREATININE 0.7 mg/dL (0.6-1.3); POTASSIUM 3.3 mmol/L (3.5-5.1); TOTAL BILIRUBIN 0.9 mg/dL (<0.1-1.0); TOTAL PROTEIN 6.3 g/dL (6.4-8.2)
[2020-09-07 08:05] VITALS: BP 148/76
[2020-09-07 12:00] VITALS: BP 152/75
[2020-09-07 16:00] VITALS: BP 139/63
[2020-09-07 20:00] VITALS: BP 151/63
[2020-09-08] VITALS (7 sets, daily range): BP systolic 134–180; BP diastolic 62–93
[2020-09-08 05:03] LABS: ABSOLUTE EOSINOPHILS 0.1 thou/uL (0.0-0.7); ABSOLUTE MONOCYTES 1.5 thou/uL (0.0-1.2); ABSOLUTE NEUTROPHILS 15.8 thou/uL (1.6-8.1); BASOPHILS 0.2 %; EOSINOPHILS 0.7 %; HEMATOCRIT 36.3 % (37.0-47.0); HEMOGLOBIN 11.9 gm/dL (12.0-15.0); LYMPHOCYTES 10.4 %; MCH 29.6 pg (26.0-34.0); MCHC 32.8 g/dL (28.0-37.0); MCV 90.3 fL (80.0-100.0); MONOCYTES 7.5 %; MPV 10.5 fl. (7.2-11.1); NUCLEATED RBCS 0 /100WBC; PLATELET COUNT* 215 thou/uL (150-400); POLYS 81.2 %; RBC 4.02 mil/uL (4.20-5.00); RDW-CV 12.9 % (10.5-14.5); WBC 19.5 thou/uL (4.0-11.0)
[2020-09-08 07:20] LABS: ALBUMIN 2.5 g/dL (3.4-5.0); CALCIUM 8.3 mg/dL (8.5-10.1); CREATININE 0.8 mg/dL (0.6-1.3); POTASSIUM 3.1 mmol/L (3.5-5.1); TOTAL BILIRUBIN 0.8 mg/dL (<0.1-1.0); TOTAL PROTEIN 6.6 g/dL (6.4-8.2)
[2020-09-09 03:56] LABS: ABSOLUTE BASOPHILS 0.1 thou/uL (0.0-0.2); ABSOLUTE EOSINOPHILS 0.3 thou/uL (0.0-0.7); ABSOLUTE LYMPHOCYTES 1.9 thou/uL (0.8-5.3); ABSOLUTE MONOCYTES 1.6 thou/uL (0.0-1.2); ABSOLUTE NEUTROPHILS 13.3 thou/uL (1.6-8.1); BASOPHILS 0.8 %; EOSINOPHILS 1.8 %; HEMATOCRIT 33.7 % (37.0-47.0); HEMOGLOBIN 11.6 gm/dL (12.0-15.0); LYMPHOCYTES 11.1 %; MCH 30.4 pg (26.0-34.0); MCHC 34.5 g/dL (28.0-37.0); MCV 88.2 fL (80.0-100.0); MONOCYTES 9.5 %; MPV 10.7 fl. (7.2-11.1); NUCLEATED RBCS 0 /100WBC; PLATELET COUNT* 208 thou/uL (150-400); POLYS 76.8 %; RBC 3.82 mil/uL (4.20-5.00); RDW-CV 12.7 % (10.5-14.5); WBC 17.3 thou/uL (4.0-11.0)
[2020-09-09 04:11] VITALS: BP 144/86
[2020-09-09 04:17] LABS: ALBUMIN 2.2 g/dL (3.4-5.0); CALCIUM 8.3 mg/dL (8.5-10.1); CREATININE 0.8 mg/dL (0.6-1.3); TOTAL BILIRUBIN 0.7 mg/dL (<0.1-1.0); TOTAL PROTEIN 6.2 g/dL (6.4-8.2)
[2020-09-09 04:26] LABS: PREALBUMIN 8.9 mg/dL (18.0-35.7)
[2020-09-09 04:35] LABS: POTASSIUM 2.9 mmol/L (3.5-5.1)
[2020-09-09 07:30] VITALS: BP 151/77
[2020-09-09 11:28] VITALS: BP 146/75
[2020-09-09 15:19] VITALS: BP 116/49
[2020-09-09 20:00] VITALS: BP 138/83
[2020-09-10 00:26] VITALS: BP 147/81
[2020-09-10 04:00] VITALS: BP 142/68
[2020-09-10 06:34] LABS: HEMATOCRIT 36.3 % (37.0-47.0); HEMOGLOBIN 12.2 gm/dL (12.0-15.0); MCH 29.8 pg (26.0-34.0); MCHC 33.6 g/dL (28.0-37.0); MCV 88.7 fL (80.0-100.0); MPV 9.6 fl. (7.2-11.1); RBC 4.09 mil/uL (4.20-5.00); RDW-CV 12.7 % (10.5-14.5); WBC 14.8 thou/uL (4.0-11.0)
[2020-09-10 06:49] LABS: ALBUMIN 2.2 g/dL (3.4-5.0); CALCIUM 8.2 mg/dL (8.5-10.1); CREATININE 0.8 mg/dL (0.6-1.3); POTASSIUM 3.5 mmol/L (3.5-5.1); TOTAL BILIRUBIN 0.6 mg/dL (<0.1-1.0); TOTAL PROTEIN 5.6 g/dL (6.4-8.2)
[2020-09-10 08:00] VITALS: BP 155/64
[2020-09-10 12:11] VITALS: BP 141/71
[2020-09-10 16:58] VITALS: BP 142/73
[2020-09-11] VITALS: BP 153/77
== END 2020-09-11 00:50 | disposition short-term general hospital (02) | DRG 871 ==
LOC: M.ERS 18:00 → M.TBA-ER 21:57 → M.2W 21:57
PROVIDERS: Internal Medicine; Nurse Practitioner Family; Surgery; ADMIT Internal Medicine; ATTEND Internal Medicine
PROC: 5A09357 Assistance with Respiratory Ventilation, Less than 24 Consecutive Hours, Continuous Positive Airway Pressure (ICD-10-PCS; principal; 2020-09-05)
PROC: 5A09357 Assistance with Respiratory Ventilation, Less than 24 Consecutive Hours, Continuous Positive Airway Pressure (ICD-10-PCS; 2020-09-07)
PROC: 5A09357 Assistance with Respiratory Ventilation, Less than 24 Consecutive Hours, Continuous Positive Airway Pressure (ICD-10-PCS; 2020-09-08)
PROC: 5A09357 Assistance with Respiratory Ventilation, Less than 24 Consecutive Hours, Continuous Positive Airway Pressure (ICD-10-PCS; 2020-09-09)
PROC: 5A09357 Assistance with Respiratory Ventilation, Less than 24 Consecutive Hours, Continuous Positive Airway Pressure (ICD-10-PCS; 2020-09-10)
DX: A41.9 Sepsis, unspecified organism (principal); K85.10 Biliary acute pancreatitis without necrosis or infection; J96.01 Acute respiratory failure with hypoxia; J98.11 Atelectasis; K80.00 Calculus of gallbladder with acute cholecystitis without obstruction; I10 Essential (primary) hypertension; E80.6 Other disorders of bilirubin metabolism; K59.00 Constipation, unspecified; E78.5 Hyperlipidemia, unspecified; Z20.828 Contact with and (suspected) exposure to other viral communicable diseases; Z85.038 Personal history of other malignant neoplasm of large intestine; Z90.49 Acquired absence of other specified parts of digestive tract; Z92.21 Personal history of antineoplastic chemotherapy; Z79.899 Other long term (current) drug therapy; Z88.2 Allergy status to sulfonamides

== ENCOUNTER → 2020-09-19 | Outpatient (CLI) | payer MEDICARE, BC ==
[~2020-09-19] MED LIST changes: +ASA81BEC PO; +CALTRATE 600 +1 EAC1 PO; +CLARITIN10 MG PO; +COZAAR 25 MG TA25 M1 PO; +COZAAR 50 MG TA50 MG PO; +FOLIC ACID0.4 MG PO; +LUMIFY2.5 ML OPHTHALMIC; +NORVASC10 MG PO; +PRESERVISION A1 EAC2 PO; +SULFASALAZINE500 M4 PO
== END ==
LOC: M.LAB 15:37
PROVIDERS: ATTEND Surgery
DX: Z01.812 Encounter for preprocedural laboratory examination (principal); K81.0 Acute cholecystitis; Z20.828 Contact with and (suspected) exposure to other viral communicable diseases

== ENCOUNTER → 2020-09-25 | Day surgery (SDC) | payer MEDICARE, BC ==
[~2020-09-25] MED LIST changes: +PERCOCET 5-3251 EACH PO
--- NOTE | 2020-09-26 08:47 | OP ---
[address] [address] OPERATIVE REPORT Name: AMOL CINTRON MELISSA Room: [facility]..#: [id number] Admission: 09/25/20 Attend Phys: Raisa Cortez DO Discharge: Date of : 43 Report #: [id number] THIS REPORT FOR: cc: Omar Sin MD, Arthur MD ~ Raisa Cortez DO DATE OF SERVICE: 09/25/2020 PREOPERATIVE DIAGNOSES: Chronic cholecystitis, recent pancreatitis. POSTOPERATIVE DIAGNOSES: Chronic cholecystitis, recent pancreatitis with the addition of intra-abdominal adhesions. SURGEON: Raisa Cortez DO COSURGEON: Wilfredo Li, PGY-1. ANIME ARTIST: MS [id number]. PROCEDURE PERFORMED: Laparoscopic cholecystectomy and laparoscopic lysis of adhesions of greater than 45 minutes. ANESTHESIA: General endotracheal with local and TAP's block. ESTIMATED BLOOD LOSS: 20 mL. DRAINS: None. SPECIMENS: Gallbladder. COMPLICATIONS: None. CONDITION: Stable. DISPOSITION: PACU to home. HISTORY OF PRESENT ILLNESS: The patient is a very pleasant 74-year-old female who recently underwent hospital stay for upper abdominal pain. She was found to have pancreatitis and a possible mass at the bifurcation of her common bile duct. She was seen by GI and was transported to the center point where she underwent an endoscopic ultrasound, ERCP and biopsy of the possible mass. Thereafter, she did well and was discharged and was then scheduled for laparoscopic cholecystectomy. Risks of surgery were discussed to include bleeding, infection, pain, scar formation, injury to bowel, liver, bile duct, hernia at the incision sites, need for an open procedure and risks of general anesthesia. Of note, the patient has had a very extensive exploratory [facility] [address] [place] [address] OPERATIVE REPORT Name: AMOL CINTRON Room: [facility].#: [id number] Admission: 09/25/20 Attend Phys: Raisa Cortez DO Discharge: Date of : 43 Report #: [id number] laparotomy for previous colon cancer, so we did discuss that her risk of an open procedure was somewhat elevated. The patient understood these risks and elected to proceed. DESCRIPTION OF PROCEDURE: The patient was brought to the operating room. She was laid supine on the operating room table. SCDs were placed on bilateral lower extremities. Ancef was given in the perioperative period. General endotracheal anesthesia was induced by Anesthesia without difficulty. Abdomen was prepped and draped in standard sterile fashion. Timeout was performed to verify patient and procedure. A 10 mL of 0.5% Marcaine were injected in the supraumbilical area. Incision was made with an 11 blade. Cautery was used for hemostasis. S retractors were used to visualize the fascia. Fascia was grasped and elevated between 2 Kochers. Fascia was incised using cautery. Peritoneum was bluntly entered using a Elena clamp. Finger was introduced into the abdomen to assure that there were no raleigh-incisional adhesions, none were palpated. Two stitches of 0 Vicryl placed on the fascia. Perfecto trocar was introduced and secured with 0 Vicryl stitches. Abdomen was insufflated. Camera was introduced and a brief anterior abdominal exploration was undertaken with findings of a multitude of dense abdominal adhesions, which extended essentially from about 2 inches superior to our port all the way to the falciform. I was not able to visualize the left lobe of the liver at all with some careful maneuvering of the camera, I was finally able to visualize the far right side of the liver. I was able to introduce a 5 mm trocar in the right upper quadrant. Camera was moved to this port and we then proceeded to perform a very careful laparoscopic lysis of adhesions using both laparoscopic scissors and cautery. After approximately 45 minutes of lysis of adhesions,I was then finally able to visualize the right lobe of the liver and the gallbladder. Two additional 5 mm trocars were introduced, one in the subxiphoid area and an additional in the right upper quadrant. The edge of the gallbladder was grasped and elevated. The gallbladder was covered with very thick dense adhesions between the omentum and the gallbladder. These were taken down with care until the triangle of Calot could be visualized. Peritoneum overlying the triangle of Calot was incised using cautery. Duct and artery were then both visualized, both were circumferentially dissected free using a [place] dissector. Any tissues posterior to the artery were removed all the way to the liver plate. This then afforded the critical view. Duct and artery were then both doubly clipped and ligated. Gallbladder was then removed from the liver bed utilizing cautery with some difficulty due to again very dense adhesions between the gallbladder and the omentum and the gallbladder and the liver. Specimen was then placed within an EndoCatch bag. Liver bed was inspected. It was hemostatic. Clips were inspected. They were intact. There was no bleeding or leakage noted from the area of the clips. Right upper quadrant was then copiously irrigated until clear. The area of our lysis of adhesions was closely inspected and there was no sign of any injuries or any bleeding. Trocars were then removed under direct visualization. There was no bleeding noted from the peritoneum. Abdomen was completely desufflated. Perfecto trocar was removed and EndoCatch bag was removed [place] [id number] OPERATIVE REPORT Name: AMOL CINTRON MELISSA [id number] Admission: 09/25/20 Attend Phys: Raisa Cortez DO Discharge: Date of : 43 Report #: [id number] with specimen intact. Specimen was then handed off for permanent pathology. Kochers were placed on the fascia of our infraumbilical port. Previously placed 0 Vicryl stitches were removed and 0 Vicryl stitches placed in [id number] fashion with excellent approximation of the fascia. An additional 10 mL of 0.5% Marcaine were injected in the fascia. All wounds were then closed with 4-0 Monocryl. A total of 30 mL of 0.5% Marcaine were used to anesthetize the wounds. Wounds were then cleansed and covered with Dermabond. The patient was then left in the care of Anesthesia for application of TAP's blocks. Counts were correct x 2 at the conclusion of the case. <ELECTRONICALLY SIGNED> By: Raisa Cortez DO 09/26/20 [id number] Cortez DO /nt
== END | disposition home or self-care (01) ==
LOC: M.SUR 11:58
PROVIDERS: ATTEND Surgery
DX: K81.1 Chronic cholecystitis (principal); K66.0 Peritoneal adhesions (postprocedural) (postinfection); K85.90 Acute pancreatitis without necrosis or infection, unspecified; I10 Essential (primary) hypertension; E78.5 Hyperlipidemia, unspecified; G47.30 Sleep apnea, unspecified; Z98.890 Other specified postprocedural states; Z79.899 Other long term (current) drug therapy; Z85.038 Personal history of other malignant neoplasm of large intestine; Z88.2 Allergy status to sulfonamides; Z79.82 Long term (current) use of aspirin

== ENCOUNTER → 2021-05-27 | Outpatient (CLI) | payer MEDICARE, BC | LOC: M.RAD 05-20 13:30 | PROVIDERS: ATTEND Family Medicine | DX: Z13.820 Encounter for screening for osteoporosis (principal); Z12.31 Encounter for screening mammogram for malignant neoplasm of breast; N64.89 Other specified disorders of breast; Z78.0 Asymptomatic menopausal state ==